=== PATIENT | female | born 1930 | race Caucasian/White ===

== ENCOUNTER 2019-11-18 21:55 | Inpatient (IN) | payer BC ==
[~2019-11-18] VITALS: Ht 149.9 cm; Wt 57.2 kg
[2019-11-18 22:02] VITALS: BP_SYST 84
[2019-11-18] MEDS ORDERED: NACL 0.9% 2,000 ML IV ONE (22:06)
[2019-11-18] MEDS ORDERED: cefTRIAXone 1 GM IVPB PREMIX 50 ML IV ONE (22:15)
[2019-11-18 22:32] LABS: HEMATOCRIT 30.7 % (36-48); MEAN CORPUSCULAR HEMOGLOBIN 29 pg (27-31); MEAN CORPUSCULAR HGB CONC 32 % (32-36); MEAN CORPUSCULAR VOLUME 89 fL (79.0-98.0); PLATELET COUNT (AUTO) 389 K/uL (130-430); RED BLOOD CELL COUNT(AUTO) 3.46 MIL/uL (4.2-6.2); RED CELL DISTRIBUTION WIDTH 19.7 % (9.0-15.0); WHITE BLOOD COUNT (AUTO) 10.2 K/uL (4.8-10.8)
[2019-11-18] MEDS ORDERED: NOREPINEPHRINE 4 MG/4 ML VIAL IV ONE (22:41)
[2019-11-18 22:52] LABS: ANION GAP 7 (5-15); CALCIUM 7.7 mg/dL (8.4-11.0); CHLORIDE 87 mmol/L (98-107); CREATININE 3.53 mg/dL (0.55-1.30); POTASSIUM 4.6 mmol/L (3.5-5.1); SODIUM SERUM 124 mmol/L (136-145); UREA NITROGEN, BLOOD 87 mg/dL (8-21)
[2019-11-18 22:55] LABS: ALANINE AMINOTRANSFERASE 16 U/L (12-78); ALBUMIN 1.7 g/dL (3.4-4.8); ASPARTATE AMINOTRANSFERASE 20 U/L (10-37); TOTAL BILIRUBIN 0.4 mg/dL (0.0-1.0)
[2019-11-18] MEDS ORDERED: DIVA250T PO (22:58)
[2019-11-18] MEDS ORDERED: PRO40 PO (22:58)
[2019-11-18] MEDS ORDERED: LIP20 PO (22:58)
[2019-11-18] MEDS ORDERED: MORP10SO PO ×2 (22:58)
[2019-11-18] MEDS ORDERED: CARV25TA55 PO (22:58)
[2019-11-18] MEDS ORDERED: IPRA4AER INH ×2 (22:58)
[2019-11-18] MEDS ORDERED: LORA-258 PO (22:58)
[2019-11-18] MEDS ORDERED: CLOP75TA32 PO (22:58)
[2019-11-18] MEDS ORDERED: DONE10TA44 PO (22:58)
[2019-11-18] MEDS ORDERED: CAND16TA25 PO (22:58)
[2019-11-18] MEDS ORDERED: FERROUS SULFATE PO (22:58)
[2019-11-18] MEDS ORDERED: CILO100T PO (22:58)
[2019-11-18] MEDS ORDERED: CAT.1 PO (22:58)
[2019-11-18] MEDS ORDERED: AMOX-423 PO (22:58)
[2019-11-18] MEDS ORDERED: INSU100V11 SQ (22:58)
[2019-11-18 23:00] LABS: GLUCOSE 606 mg/dL (70-99)
[2019-11-18 23:03] LABS: ATYPICAL LYMPHOCYTES % 0 % (0-0); BAND % (MANUAL) 5 % (0-6); BASOPHILS % (MANUAL) 0 % (0-2); EOSINOPHILS % (MANUAL) 0 % (0-7); LYMPHOCYTES % (MANUAL) 9 % (20-46); METAMYELOCYTES % 5 % (0-0); MONOCYTES % (MANUAL) 11 % (0-11); MYELOCYTES % 5 % (0-0)
[2019-11-18] MEDS ORDERED: INSULIN REGULAR, HUMAN 10 UNITS/0.1 ML INJ IVP ONE (23:15)
[2019-11-18] MEDS ORDERED: NOREPINEPHRINE BITARTRATE 4 MG in NS 246 ML IV ONE (23:30)
[2019-11-19] VITALS (50 sets, daily range): BP systolic 77–136
[2019-11-19 00:22] LABS: BILIRUBIN,URINE 1+ (NEGATIVE); BLOOD, URINE NEGATIVE (NEGATIVE); CLARITY/URINE CLEAR (CLEAR); COLOR,URINE YELLOW (YELLOW); GLUCOSE,URINE 3+ (NEGATIVE); KETONES,URINE TRACE (NEGATIVE); LEUKOCYTE ESTERASE ,URINE NEGATIVE (NEGATIVE); NITRITE, URINE NEGATIVE (NEGATIVE); PROTEIN URINE TRACE (NEGATIVE); UROBILINOGEN,URINE 0.2 (0.2-1.0)
[2019-11-19 00:29] LABS: BACTERIA,URINE FEW /HPF (None Seen); RBC,URINE 0-3 /HPF (0-3); WBC,URINE 0-3 /HPF (0-3)
[2019-11-19] MEDS ORDERED: INSULIN REGULAR, HUMAN 10 UNITS/0.1 ML INJ IVP ONE (02:30)
[2019-11-19] MEDS ORDERED: VANCOMYCIN HCL 1,000 MG in NS 250 ML IV ONE (03:30)
[2019-11-19] MEDS ORDERED: NOREPINEPHRINE BITARTRATE 4 MG in NS 246 ML IV ONE (03:45)
[2019-11-19] MEDS ORDERED: ACETAMINOPHEN 650 MG SUPP.RECT RC PRN (03:45)
[2019-11-19] MEDS ORDERED: VANCOMYCIN HCL 1000 MG/VIAL IV ONE (04:00)
[2019-11-19] MEDS ORDERED: NOREPINEPHRINE 4 MG/4 ML VIAL IV ONE (04:15)
[2019-11-19] MEDS: NACL 0.9% 1,000 ML IV SCH ×3 (06:49→21:29)
[2019-11-19 08:51] LABS: PROTHROMBIN TIME 10.3 SECS (9.5-12.5)
[2019-11-19] MEDS: NOREPINEPHRINE BITARTRATE 4 MG in NS 246 ML IV PRN ×2 (11:02→16:40)
[2019-11-19] MEDS: PIPERACILLIN/TAZO 2.25G/DEX-IS 50 ML IV SCH ×3 (12:29→23:42)
[2019-11-19] MEDS: AZITHROMYCIN 250 MG in NS 250 ML IV SCH (12:31)
[2019-11-19] MEDS: INSULIN REGULAR, HUMAN 100 UNITS/ML, 10 ML VIAL (humuLIN R) SUBCUT PRN ×2 (12:53→19:10)
[2019-11-19] MEDS ORDERED: PANTOPRAZOLE SODIUM 40 MG TAB PO ONE (13:30)
[2019-11-19] MEDS ORDERED: INSULIN GLARGINE 100 UNITS/ML 10 ML VIAL SUBCUT ONE (13:30)
[2019-11-19] MEDS ORDERED: CLOPIDOGREL BISULFATE 75 MG TABLET PO ONE (13:30)
[2019-11-19] MEDS ORDERED: ATORVASTATIN 20 MG TABLET PO ONE (13:30)
[2019-11-19 15:30] LABS: ALANINE AMINOTRANSFERASE 17 U/L (12-78); ALBUMIN 1.4 g/dL (3.4-4.8); ANION GAP 8 (5-15); ASPARTATE AMINOTRANSFERASE 21 U/L (10-37); CALCIUM 7.4 mg/dL (8.4-11.0); CHLORIDE 95 mmol/L (98-107); CREATININE 2.38 mg/dL (0.55-1.30); POTASSIUM 3.9 mmol/L (3.5-5.1); SODIUM SERUM 131 mmol/L (136-145); TOTAL BILIRUBIN 0.2 mg/dL (0.0-1.0); UREA NITROGEN, BLOOD 77 mg/dL (8-21)
[2019-11-19 15:34] LABS: GLUCOSE 443 mg/dL (70-99)
[2019-11-19] MEDS: CILOSTAZOL 50 MG TABLET (PLETAL) PO SCH (16:55)
[2019-11-19] MEDS: FERROUS SULFATE 325 MG TABLET.DR PO SCH (21:00)
[2019-11-19] MEDS: CARVEDILOL 25 MG TABLET (COREG) PO SCH (21:00)
[2019-11-19] MEDS: DONEPEZIL HCL 5 MG TABLET (ARICEPT) PO SCH (21:00)
[2019-11-20] VITALS (24 sets, daily range): BP systolic 90–145
[2019-11-20] MEDS: INSULIN REGULAR, HUMAN 100 UNITS/ML, 10 ML VIAL (humuLIN R) SUBCUT PRN ×3 (00:14→19:16)
[2019-11-20] MEDS ORDERED: NOREPINEPHRINE 4 MG/4 ML VIAL IV ONE (03:09)
[2019-11-20] MEDS: NOREPINEPHRINE BITARTRATE 4 MG in NS 246 ML IV PRN ×3 (03:09→23:46)
[2019-11-20] MEDS: NACL 0.9% 1,000 ML IV SCH ×3 (03:51→21:22)
[2019-11-20] MEDS: CILOSTAZOL 50 MG TABLET (PLETAL) PO SCH ×2 (05:22→17:00)
[2019-11-20] MEDS: PIPERACILLIN/TAZO 2.25G/DEX-IS 50 ML IV SCH ×4 (05:24→23:44)
[2019-11-20 05:48] LABS: HEMATOCRIT 31.5 % (36-48); HEMOGLOBIN 10.1 g/dL (12.0-16.0); MEAN CORPUSCULAR HEMOGLOBIN 29 pg (27-31); MEAN CORPUSCULAR HGB CONC 32 % (32-36); MEAN CORPUSCULAR VOLUME 89 fL (79.0-98.0); PLATELET COUNT (AUTO) 396 K/uL (130-430); RED BLOOD CELL COUNT(AUTO) 3.55 MIL/uL (4.2-6.2); RED CELL DISTRIBUTION WIDTH 19.6 % (9.0-15.0); WHITE BLOOD COUNT (AUTO) 13.1 K/uL (4.8-10.8)
[2019-11-20 06:18] LABS: ALANINE AMINOTRANSFERASE 17 U/L (12-78); ALBUMIN 1.4 g/dL (3.4-4.8); ANION GAP 5 (5-15); ASPARTATE AMINOTRANSFERASE 19 U/L (10-37); CHLORIDE 101 mmol/L (98-107); CREATININE 1.73 mg/dL (0.55-1.30); GLUCOSE 185 mg/dL (70-99); POTASSIUM 3.8 mmol/L (3.5-5.1); SODIUM SERUM 133 mmol/L (136-145); TOTAL BILIRUBIN 0.2 mg/dL (0.0-1.0); UREA NITROGEN, BLOOD 58 mg/dL (8-21); VANCOMYCIN,RANDOM 8.5 ug/mL
[2019-11-20] MEDS: AZITHROMYCIN 250 MG in NS 250 ML IV SCH (07:48)
[2019-11-20] MEDS: CARVEDILOL 25 MG TABLET (COREG) PO SCH ×2 (09:00→21:00)
[2019-11-20] MEDS: INSULIN GLARGINE 100 UNITS/ML 10 ML VIAL SUBCUT SCH (09:00)
[2019-11-20] MEDS: ATORVASTATIN 20 MG TABLET PO SCH (09:00)
[2019-11-20] MEDS: LOSARTAN POTASSIUM 50 MG TABLET (COZAAR) PO SCH (09:00)
[2019-11-20] MEDS ORDERED: CLOPIDOGREL BISULFATE 75 MG TABLET PO SCH (09:00)
[2019-11-20] MEDS ORDERED: NS 500 ML IV ONE (10:00)
[2019-11-20] MEDS ORDERED: VANCOMYCIN HCL 1 GM/NS PREMIX 250 ML IV ONE (10:00)
[2019-11-20 10:26] LABS: BAND % (MANUAL) 17 % (0-6); LYMPHOCYTES % (MANUAL) 10 % (20-46)
[2019-11-20 10:27] LABS: BASOPHILS % (MANUAL) 0 % (0-2); BLASTS, MANUAL % 0 % (0-0); EOSINOPHILS % (MANUAL) 1 % (0-7); METAMYELOCYTES % 9 % (0-0); MONOCYTES % (MANUAL) 4 % (0-11); MYELOCYTES % 5 % (0-0); PROMYELOCYTES % 2 % (0-0)
[2019-11-20] MEDS: ALBUMIN HUMAN 25% 50 ML IV SCH ×3 (12:22→17:56)
[2019-11-20] MEDS ORDERED: ALBUTEROL SULFATE 0.083% 2.5 MG/3 ML VIAL.NEB INH PRN (16:00)
[2019-11-20] MEDS ORDERED: IPRATROPIUM BROM 0.5 MG/2.5 ML VIAL.NEB (ATROVENT) INH PRN (16:00)
[2019-11-20] MEDS: ALBUTEROL SULFATE 0.083% 2.5 MG/3 ML VIAL.NEB INH SCH ×2 (16:00→19:51)
[2019-11-20] MEDS: PANTOPRAZOLE SODIUM 40 MG TAB PO SCH (16:37)
[2019-11-20] MEDS: IPRATROPIUM BROM 0.5 MG/2.5 ML VIAL.NEB (ATROVENT) INH SCH (19:51)
[2019-11-20] MEDS: MUPIROCIN 2% TOPICAL OINTMENT 22 GM NS SCH (21:20)
[2019-11-20] MEDS: FERROUS SULFATE 325 MG TABLET.DR PO SCH (21:20)
[2019-11-20] MEDS: DONEPEZIL HCL 5 MG TABLET (ARICEPT) PO SCH (21:20)
[2019-11-21] VITALS (21 sets, daily range): BP systolic 107–161
[2019-11-21] MEDS: IPRATROPIUM BROM 0.5 MG/2.5 ML VIAL.NEB (ATROVENT) INH SCH ×3 (01:26→19:48)
[2019-11-21] MEDS: ALBUTEROL SULFATE 0.083% 2.5 MG/3 ML VIAL.NEB INH SCH ×3 (01:26→19:48)
[2019-11-21] MEDS: PIPERACILLIN/TAZO 2.25G/DEX-IS 50 ML IV SCH ×4 (05:50→23:48)
[2019-11-21] MEDS: NACL 0.9% 1,000 ML IV SCH (05:50)
[2019-11-21 05:58] LABS: BASOPHILS % (AUTO) 0.2 % (0.0-2.0); EOSINOPHILS # (AUTO) 0.1 K/uL (0.0-0.4); EOSINOPHILS % (AUTO) 0.5 % (0.0-4.0); HEMATOCRIT 28.6 % (36-48); HEMOGLOBIN 9.1 g/dL (12.0-16.0); LYMPHOCYTES # (AUTO) 0.8 K/uL (1.0-5.5); LYMPHOCYTES % (AUTO) 6.3 % (20.5-51.5); MEAN CORPUSCULAR HEMOGLOBIN 28 pg (27-31); MEAN CORPUSCULAR HGB CONC 32 % (32-36); MEAN CORPUSCULAR VOLUME 89 fL (79.0-98.0); MONOCYTES # (AUTO) 0.9 K/uL (0.0-1.0); MONOCYTES % (AUTO) 6.4 % (1.7-9.3); NEUTROPHILS # (AUTO) 11.6 K/uL (1.8-7.7); NEUTROPHILS % (AUTO) 86.6 % (40.0-70.0); PLATELET COUNT (AUTO) 333 K/uL (130-430); RED CELL DISTRIBUTION WIDTH 19.9 % (9.0-15.0); WHITE BLOOD COUNT (AUTO) 13.4 K/uL (4.8-10.8)
[2019-11-21] MEDS: INSULIN REGULAR, HUMAN 100 UNITS/ML, 10 ML VIAL (humuLIN R) SUBCUT PRN ×2 (06:07→12:33)
[2019-11-21] MEDS: BALSAM PERU/CASTOR OIL 60 GM OINT...G. TP SCH (09:00)
[2019-11-21] MEDS: MUPIROCIN 2% TOPICAL OINTMENT 22 GM NS SCH ×2 (09:00→20:14)
[2019-11-21] MEDS: PANTOPRAZOLE SODIUM 40 MG TAB PO SCH (09:00)
[2019-11-21] MEDS: AZITHROMYCIN 250 MG in NS 250 ML IV SCH (09:00)
[2019-11-21] MEDS: CARVEDILOL 25 MG TABLET (COREG) PO SCH ×2 (09:00→20:15)
[2019-11-21] MEDS: ATORVASTATIN 20 MG TABLET PO SCH (09:00)
[2019-11-21] MEDS: LOSARTAN POTASSIUM 50 MG TABLET (COZAAR) PO SCH (09:00)
[2019-11-21] MEDS: INSULIN GLARGINE 100 UNITS/ML 10 ML VIAL SUBCUT SCH (09:00)
[2019-11-21 11:09] LABS: CHOLESTEROL 92 mg/dL (<200); HDL CHOLESTEROL 26 mg/dL (>55); LDL CHOLESTEROL 34 mg/dL (<100); TRIGLYCERIDES 77 mg/dL (30-150)
[2019-11-21 11:22] LABS: ANION GAP 9 (5-15); ASPARTATE AMINOTRANSFERASE 18 U/L (10-37); CALCIUM 7.9 mg/dL (8.4-11.0); CHLORIDE 106 mmol/L (98-107); CREATININE 1.29 mg/dL (0.55-1.30); GLUCOSE 211 mg/dL (70-99); POTASSIUM 4.1 mmol/L (3.5-5.1); SODIUM SERUM 141 mmol/L (136-145); TOTAL BILIRUBIN 0.4 mg/dL (0.0-1.0); UREA NITROGEN, BLOOD 52 mg/dL (8-21)
[2019-11-21 11:23] LABS: ALANINE AMINOTRANSFERASE 17 U/L (12-78); ALBUMIN 1.9 g/dL (3.4-4.8)
[2019-11-21 11:52] LABS: THYROID STIMULATING HORMONE 1.98 uIu/mL (0.34-4.82)
[2019-11-21] MEDS: 0.45% NACL 1,000 ML IV SCH ×2 (12:32→23:45)
[2019-11-21] MEDS ORDERED: *TPN PER PHARMACY XX PRN (15:00)
[2019-11-21] MEDS: DONEPEZIL HCL 5 MG TABLET (ARICEPT) PO SCH (20:15)
[2019-11-21] MEDS: FERROUS SULFATE 325 MG TABLET.DR PO SCH (20:15)
[2019-11-22] VITALS (24 sets, daily range): BP systolic 118–162
[2019-11-22] MEDS ORDERED: DEXTROSE 50% JECT 50 ML DISP.SYRIN IVP PRN
[2019-11-22] MEDS ORDERED: DEXTROSE 50% JECT 50 ML DISP.SYRIN ONE (00:19)
[2019-11-22] MEDS: ALBUTEROL SULFATE 0.083% 2.5 MG/3 ML VIAL.NEB INH SCH ×4 (00:36→19:34)
[2019-11-22] MEDS: IPRATROPIUM BROM 0.5 MG/2.5 ML VIAL.NEB (ATROVENT) INH SCH ×4 (00:36→19:34)
[2019-11-22] MEDS: 0.45% NACL 1,000 ML IV SCH ×2 (03:07→23:55)
[2019-11-22] MEDS: PIPERACILLIN/TAZO 2.25G/DEX-IS 50 ML IV SCH ×4 (05:46→23:50)
[2019-11-22 06:19] LABS: HEMATOCRIT 28.1 % (36-48); HEMOGLOBIN 8.9 g/dL (12.0-16.0); MEAN CORPUSCULAR HEMOGLOBIN 28 pg (27-31); MEAN CORPUSCULAR HGB CONC 32 % (32-36); MEAN CORPUSCULAR VOLUME 89 fL (79.0-98.0); PLATELET COUNT (AUTO) 325 K/uL (130-430); RED BLOOD CELL COUNT(AUTO) 3.15 MIL/uL (4.2-6.2); RED CELL DISTRIBUTION WIDTH 20.1 % (9.0-15.0); WHITE BLOOD COUNT (AUTO) 14.2 K/uL (4.8-10.8)
[2019-11-22 06:34] LABS: ALANINE AMINOTRANSFERASE 12 U/L (12-78); ALBUMIN 1.6 g/dL (3.4-4.8); ANION GAP 3 (5-15); ASPARTATE AMINOTRANSFERASE 15 U/L (10-37); CALCIUM 8.6 mg/dL (8.4-11.0); CHLORIDE 108 mmol/L (98-107); CREATININE 1.14 mg/dL (0.55-1.30); GLUCOSE 95 mg/dL (70-99); PHOSPHORUS 2.1 mg/dL (2.7-4.5); POTASSIUM 3.5 mmol/L (3.5-5.1); SODIUM SERUM 139 mmol/L (136-145); TOTAL BILIRUBIN 0.4 mg/dL (0.0-1.0); TRIGLYCERIDES 62 mg/dL (30-150); UREA NITROGEN, BLOOD 41 mg/dL (8-21)
[2019-11-22] MEDS: LOSARTAN POTASSIUM 50 MG TABLET (COZAAR) PO SCH (08:05)
[2019-11-22] MEDS: ATORVASTATIN 20 MG TABLET PO SCH (08:05)
[2019-11-22] MEDS: PANTOPRAZOLE SODIUM 40 MG TAB PO SCH (08:05)
[2019-11-22] MEDS: AZITHROMYCIN 250 MG in NS 250 ML IV SCH (08:06)
[2019-11-22] MEDS: MUPIROCIN 2% TOPICAL OINTMENT 22 GM NS SCH ×2 (08:06→21:00)
[2019-11-22] MEDS: CARVEDILOL 25 MG TABLET (COREG) PO SCH ×2 (08:06→21:50)
[2019-11-22] MEDS: INSULIN GLARGINE 100 UNITS/ML 10 ML VIAL SUBCUT SCH (08:07)
[2019-11-22] MEDS: BALSAM PERU/CASTOR OIL 60 GM OINT...G. TP SCH (08:07)
[2019-11-22 11:38] LABS: BAND % (MANUAL) 8 % (0-6); BASOPHILS % (MANUAL) 0 % (0-2); EOSINOPHILS % (MANUAL) 2 % (0-7); LYMPHOCYTES % (MANUAL) 7 % (20-46); METAMYELOCYTES % 16 % (0-0); MONOCYTES % (MANUAL) 2 % (0-11); MYELOCYTES % 3 % (0-0)
[2019-11-22] MEDS: FAT EMULSIONS 250 ML IV SCH (20:14)
[2019-11-22] MEDS ORDERED: SODIUM ACETATE IV SCH ×8 (21:00)
[2019-11-22] MEDS ORDERED: K PHOS IV SCH ×8 (21:00)
[2019-11-22] MEDS: DONEPEZIL HCL 5 MG TABLET (ARICEPT) PO SCH (21:00)
[2019-11-22] MEDS ORDERED: [UNRECOGNIZED DRUG - OTHER] IV SCH ×8 (21:00)
[2019-11-22] MEDS ORDERED: TPN CENTRAL IV SCH ×8 (21:00)
[2019-11-22] MEDS ORDERED: COLISTIMETHATE SODIUM 75 MG in NS 50 ML IV SCH (21:00)
[2019-11-22] MEDS ORDERED: MAGNESIUM SULFATE IV SCH ×8 (21:00)
[2019-11-22] MEDS ORDERED: COLISTIMETHATE SODIUM 150 MG VIAL ONE (21:19)
[2019-11-22] MEDS: FERROUS SULFATE 325 MG TABLET.DR PO SCH (23:48)
[2019-11-23] VITALS (21 sets, daily range): BP systolic 89–173
[2019-11-23] MEDS: INSULIN REGULAR, HUMAN 100 UNITS/ML, 10 ML VIAL (humuLIN R) SUBCUT PRN ×4 (00:08→18:30)
[2019-11-23] MEDS: ALBUTEROL SULFATE 0.083% 2.5 MG/3 ML VIAL.NEB INH SCH ×4 (01:53→19:40)
[2019-11-23] MEDS: IPRATROPIUM BROM 0.5 MG/2.5 ML VIAL.NEB (ATROVENT) INH SCH ×4 (01:53→19:40)
[2019-11-23 05:41] LABS: BASOPHILS % (AUTO) 0.1 % (0.0-2.0); EOSINOPHILS # (AUTO) 0.1 K/uL (0.0-0.4); EOSINOPHILS % (AUTO) 0.9 % (0.0-4.0); HEMATOCRIT 30.1 % (36-48); HEMOGLOBIN 9.5 g/dL (12.0-16.0); LYMPHOCYTES # (AUTO) 0.8 K/uL (1.0-5.5); LYMPHOCYTES % (AUTO) 5.7 % (20.5-51.5); MEAN CORPUSCULAR HEMOGLOBIN 28 pg (27-31); MEAN CORPUSCULAR HGB CONC 32 % (32-36); MEAN CORPUSCULAR VOLUME 90 fL (79.0-98.0); MONOCYTES # (AUTO) 0.7 K/uL (0.0-1.0); MONOCYTES % (AUTO) 5.1 % (1.7-9.3); NEUTROPHILS # (AUTO) 12.7 K/uL (1.8-7.7); NEUTROPHILS % (AUTO) 88.2 % (40.0-70.0); PLATELET COUNT (AUTO) 297 K/uL (130-430); RED BLOOD CELL COUNT(AUTO) 3.35 MIL/uL (4.2-6.2); RED CELL DISTRIBUTION WIDTH 20.1 % (9.0-15.0); WHITE BLOOD COUNT (AUTO) 14.4 K/uL (4.8-10.8)
[2019-11-23] MEDS: PIPERACILLIN/TAZO 2.25G/DEX-IS 50 ML IV SCH ×4 (05:41→23:53)
[2019-11-23 06:22] LABS: ALANINE AMINOTRANSFERASE 13 U/L (12-78); ALBUMIN 1.4 g/dL (3.4-4.8); ASPARTATE AMINOTRANSFERASE 15 U/L (10-37); CALCIUM 8.7 mg/dL (8.4-11.0); CHLORIDE 109 mmol/L (98-107); CREATININE 0.99 mg/dL (0.55-1.30); GLUCOSE 266 mg/dL (70-99); PHOSPHORUS 2.3 mg/dL (2.7-4.5); POTASSIUM 3.9 mmol/L (3.5-5.1); SODIUM SERUM 139 mmol/L (136-145); TOTAL BILIRUBIN 0.3 mg/dL (0.0-1.0); UREA NITROGEN, BLOOD 31 mg/dL (8-21)
[2019-11-23 06:54] LABS: ANION GAP < 3 (5-15)
[2019-11-23] MEDS: COLISTIMETHATE SODIUM 75 MG in NS 50 ML IV SCH ×2 (08:59→21:00)
[2019-11-23] MEDS: LOSARTAN POTASSIUM 50 MG TABLET (COZAAR) PO SCH (08:59)
[2019-11-23] MEDS: PANTOPRAZOLE SODIUM 40 MG TAB PO SCH (08:59)
[2019-11-23] MEDS: ATORVASTATIN 20 MG TABLET PO SCH (08:59)
[2019-11-23] MEDS ORDERED: VANCOMYCIN HCL 750 MG in NS 250 ML IV SCH (09:00)
[2019-11-23] MEDS: CARVEDILOL 25 MG TABLET (COREG) PO SCH ×2 (09:06→21:00)
[2019-11-23] MEDS: INSULIN GLARGINE 100 UNITS/ML 10 ML VIAL SUBCUT SCH (09:10)
[2019-11-23] MEDS: BALSAM PERU/CASTOR OIL 60 GM OINT...G. TP SCH (09:10)
[2019-11-23] MEDS: MUPIROCIN 2% TOPICAL OINTMENT 22 GM NS SCH ×2 (09:10→21:00)
[2019-11-23] MEDS ORDERED: TPN CENTRAL IV SCH ×9 (21:00)
[2019-11-23] MEDS ORDERED: K PHOS IV SCH ×9 (21:00)
[2019-11-23] MEDS ORDERED: SODIUM ACETATE IV SCH ×9 (21:00)
[2019-11-23] MEDS ORDERED: MAGNESIUM SULFATE IV SCH ×9 (21:00)
[2019-11-23] MEDS ORDERED: [UNRECOGNIZED DRUG - OTHER] IV SCH ×9 (21:00)
[2019-11-23] MEDS: FERROUS SULFATE 325 MG TABLET.DR PO SCH (22:00)
[2019-11-23] MEDS: DONEPEZIL HCL 5 MG TABLET (ARICEPT) PO SCH (22:00)
[2019-11-23] MEDS: FAT EMULSIONS 250 ML IV SCH (22:03)
[2019-11-24] VITALS (26 sets, daily range): BP systolic 83–133
[2019-11-24] MEDS: IPRATROPIUM BROM 0.5 MG/2.5 ML VIAL.NEB (ATROVENT) INH SCH ×4 (01:14→19:44)
[2019-11-24] MEDS: ALBUTEROL SULFATE 0.083% 2.5 MG/3 ML VIAL.NEB INH SCH ×4 (01:14→19:44)
[2019-11-24] MEDS: 0.45% NACL 1,000 ML IV SCH ×2 (04:15→09:45)
[2019-11-24 05:38] LABS: BASOPHILS % (AUTO) 0.2 % (0.0-2.0); EOSINOPHILS # (AUTO) 0.2 K/uL (0.0-0.4); EOSINOPHILS % (AUTO) 1.2 % (0.0-4.0); HEMATOCRIT 25.6 % (36-48); HEMOGLOBIN 8.2 g/dL (12.0-16.0); LYMPHOCYTES # (AUTO) 0.9 K/uL (1.0-5.5); LYMPHOCYTES % (AUTO) 5.3 % (20.5-51.5); MEAN CORPUSCULAR HEMOGLOBIN 28 pg (27-31); MEAN CORPUSCULAR HGB CONC 32 % (32-36); MEAN CORPUSCULAR VOLUME 89 fL (79.0-98.0); MONOCYTES # (AUTO) 0.9 K/uL (0.0-1.0); MONOCYTES % (AUTO) 5.6 % (1.7-9.3); NEUTROPHILS % (AUTO) 87.7 % (40.0-70.0); PLATELET COUNT (AUTO) 244 K/uL (130-430); RED BLOOD CELL COUNT(AUTO) 2.89 MIL/uL (4.2-6.2); RED CELL DISTRIBUTION WIDTH 20.3 % (9.0-15.0)
[2019-11-24] MEDS: PIPERACILLIN/TAZO 2.25G/DEX-IS 50 ML IV SCH (06:00)
[2019-11-24 06:03] LABS: ALANINE AMINOTRANSFERASE 10 U/L (12-78); ALBUMIN 1.4 g/dL (3.4-4.8); ANION GAP 7 (5-15); ASPARTATE AMINOTRANSFERASE 21 U/L (10-37); CALCIUM 8.1 mg/dL (8.4-11.0); CHLORIDE 105 mmol/L (98-107); CREATININE 0.77 mg/dL (0.55-1.30); GLUCOSE 242 mg/dL (70-99); PHOSPHORUS 2.5 mg/dL (2.7-4.5); POTASSIUM 3.3 mmol/L (3.5-5.1); SODIUM SERUM 139 mmol/L (136-145); TOTAL BILIRUBIN 0.2 mg/dL (0.0-1.0); UREA NITROGEN, BLOOD 26 mg/dL (8-21)
[2019-11-24] MEDS: INSULIN REGULAR, HUMAN 100 UNITS/ML, 10 ML VIAL (humuLIN R) SUBCUT PRN ×3 (07:59→17:22)
[2019-11-24] MEDS ORDERED: MAGNESIUM SULFATE 50 ML IV ONE ×2 (08:15→08:30)
[2019-11-24] MEDS ORDERED: KCL 20 mEq in 100 mL (PREMIX) 100 ML IV ONE (08:30)
[2019-11-24] MEDS: INSULIN GLARGINE 100 UNITS/ML 10 ML VIAL SUBCUT SCH (08:43)
[2019-11-24] MEDS: COLISTIMETHATE SODIUM 75 MG in NS 50 ML IV SCH ×2 (08:52→21:00)
[2019-11-24] MEDS: LOSARTAN POTASSIUM 50 MG TABLET (COZAAR) PO SCH (09:28)
[2019-11-24] MEDS: BALSAM PERU/CASTOR OIL 60 GM OINT...G. TP SCH (09:29)
[2019-11-24] MEDS: PANTOPRAZOLE SODIUM 40 MG TAB PO SCH (09:29)
[2019-11-24] MEDS: MUPIROCIN 2% TOPICAL OINTMENT 22 GM NS SCH ×2 (09:29→21:00)
[2019-11-24] MEDS: ATORVASTATIN 20 MG TABLET PO SCH (09:29)
[2019-11-24] MEDS: CARVEDILOL 25 MG TABLET (COREG) PO SCH ×2 (09:30→21:00)
[2019-11-24] MEDS ORDERED: TIGECYCLINE 100 MG in NS 100 ML IV ONE (09:45)
[2019-11-24] MEDS ORDERED: NOREPINEPHRINE BITARTRATE 4 MG in NS 246 ML IV PRN (12:30)
[2019-11-24] MEDS ORDERED: NS 500 ML IV ONE (12:30)
[2019-11-24] MEDS ORDERED: NOREPINEPHRINE 4 MG/4 ML VIAL IV ONE (12:32)
[2019-11-24] MEDS: NOREPINEPHRINE BITARTRATE 4 MG in NS 246 ML IV PRN (13:09)
[2019-11-24] MEDS ORDERED: K PHOS IV SCH ×11 (21:00)
[2019-11-24] MEDS ORDERED: [UNRECOGNIZED DRUG - OTHER] IV SCH ×11 (21:00)
[2019-11-24] MEDS ORDERED: MAGNESIUM SULFATE IV SCH ×11 (21:00)
[2019-11-24] MEDS ORDERED: SODIUM ACETATE IV SCH ×11 (21:00)
[2019-11-24] MEDS ORDERED: TPN CENTRAL IV SCH ×11 (21:00)
[2019-11-24] MEDS: FERROUS SULFATE 325 MG TABLET.DR PO SCH (22:59)
[2019-11-24] MEDS: DONEPEZIL HCL 5 MG TABLET (ARICEPT) PO SCH (23:00)
[2019-11-24] MEDS: TIGECYCLINE 50 MG in NS 100 ML IV SCH (23:02)
[2019-11-24] MEDS: FAT EMULSIONS 250 ML IV SCH (23:06)
[2019-11-25] VITALS (32 sets, daily range): BP systolic 80–146
[2019-11-25] MEDS: ALBUTEROL SULFATE 0.083% 2.5 MG/3 ML VIAL.NEB INH SCH ×2 (01:54→19:26)
[2019-11-25] MEDS: IPRATROPIUM BROM 0.5 MG/2.5 ML VIAL.NEB (ATROVENT) INH SCH ×2 (01:55→19:26)
[2019-11-25] MEDS: NOREPINEPHRINE BITARTRATE 4 MG in NS 246 ML IV PRN ×2 (06:41→16:00)
[2019-11-25 06:48] LABS: BASOPHILS % (AUTO) 0.2 % (0.0-2.0); EOSINOPHILS # (AUTO) 0.2 K/uL (0.0-0.4); EOSINOPHILS % (AUTO) 0.9 % (0.0-4.0); HEMATOCRIT 25.7 % (36-48); HEMOGLOBIN 8.2 g/dL (12.0-16.0); LYMPHOCYTES # (AUTO) 1.5 K/uL (1.0-5.5); MEAN CORPUSCULAR HEMOGLOBIN 29 pg (27-31); MEAN CORPUSCULAR HGB CONC 32 % (32-36); MEAN CORPUSCULAR VOLUME 90 fL (79.0-98.0); MONOCYTES # (AUTO) 1.2 K/uL (0.0-1.0); NEUTROPHILS # (AUTO) 16.2 K/uL (1.8-7.7); PLATELET COUNT (AUTO) 214 K/uL (130-430); RED BLOOD CELL COUNT(AUTO) 2.86 MIL/uL (4.2-6.2); RED CELL DISTRIBUTION WIDTH 20.7 % (9.0-15.0); WHITE BLOOD COUNT (AUTO) 19.2 K/uL (4.8-10.8)
[2019-11-25 07:27] LABS: ALANINE AMINOTRANSFERASE 10 U/L (12-78); ALBUMIN 1.3 g/dL (3.4-4.8); ANION GAP 6 (5-15); ASPARTATE AMINOTRANSFERASE 19 U/L (10-37); CALCIUM 8.2 mg/dL (8.4-11.0); CHLORIDE 106 mmol/L (98-107); CREATININE 1.09 mg/dL (0.55-1.30); GLUCOSE 159 mg/dL (70-99); PHOSPHORUS 3.3 mg/dL (2.7-4.5); POTASSIUM 3.6 mmol/L (3.5-5.1); SODIUM SERUM 138 mmol/L (136-145); TOTAL BILIRUBIN 0.2 mg/dL (0.0-1.0); UREA NITROGEN, BLOOD 39 mg/dL (8-21)
[2019-11-25 07:29] LABS: NEUTROPHILS % (AUTO) 84.9 % (40.0-70.0)
[2019-11-25] MEDS: TIGECYCLINE 50 MG in NS 100 ML IV SCH ×2 (08:30→22:02)
[2019-11-25] MEDS: INSULIN GLARGINE 100 UNITS/ML 10 ML VIAL SUBCUT SCH (08:31)
[2019-11-25] MEDS: PANTOPRAZOLE SODIUM 40 MG TAB PO SCH (08:32)
[2019-11-25] MEDS: ATORVASTATIN 20 MG TABLET PO SCH (08:32)
[2019-11-25] MEDS: BALSAM PERU/CASTOR OIL 60 GM OINT...G. TP SCH (08:33)
[2019-11-25] MEDS: MUPIROCIN 2% TOPICAL OINTMENT 22 GM NS SCH (08:34)
[2019-11-25] MEDS: CARVEDILOL 25 MG TABLET (COREG) PO SCH ×2 (08:34→21:00)
[2019-11-25] MEDS: 0.45% NACL 1,000 ML IV SCH (08:35)
[2019-11-25] MEDS: LOSARTAN POTASSIUM 50 MG TABLET (COZAAR) PO SCH (08:35)
[2019-11-25] MEDS: COLISTIMETHATE SODIUM 75 MG in NS 50 ML IV SCH ×2 (09:37→22:09)
[2019-11-25] MEDS: INSULIN REGULAR, HUMAN 100 UNITS/ML, 10 ML VIAL (humuLIN R) SUBCUT PRN ×2 (11:51→17:11)
[2019-11-25] MEDS ORDERED: ALBUMIN HUMAN 5% 250 ML IV ONE (12:30)
[2019-11-25] MEDS ORDERED: [UNRECOGNIZED DRUG - OTHER] IV SCH ×11 (21:00)
[2019-11-25] MEDS ORDERED: SODIUM ACETATE IV SCH ×11 (21:00)
[2019-11-25] MEDS ORDERED: TPN CENTRAL IV SCH ×11 (21:00)
[2019-11-25] MEDS ORDERED: K PHOS IV SCH ×11 (21:00)
[2019-11-25] MEDS ORDERED: MAGNESIUM SULFATE IV SCH ×11 (21:00)
[2019-11-25] MEDS: FAT EMULSIONS 250 ML IV SCH (22:05)
== END 2019-11-25 22:53 | disposition expired | DRG 871 ==
LOC: SED 21:55 → SIC 11-19 03:28
PROVIDERS: ADMIT Family Medicine; ATTEND Family Medicine
PROC: 02HV33Z Insertion of Infusion Device into Superior Vena Cava, Percutaneous Approach (ICD-10-PCS; principal; 2019-11-19)
PROC: B548ZZA Ultrasonography of Superior Vena Cava, Guidance (ICD-10-PCS; 2019-11-19)
PROC: 5A09357 Assistance with Respiratory Ventilation, Less than 24 Consecutive Hours, Continuous Positive Airway Pressure (ICD-10-PCS; 2019-11-19)
PROC: 5A09357 Assistance with Respiratory Ventilation, Less than 24 Consecutive Hours, Continuous Positive Airway Pressure (ICD-10-PCS; 2019-11-20)
PROC: 5A09457 Assistance with Respiratory Ventilation, 24-96 Consecutive Hours, Continuous Positive Airway Pressure (ICD-10-PCS; 2019-11-21)
PROC: 5A09357 Assistance with Respiratory Ventilation, Less than 24 Consecutive Hours, Continuous Positive Airway Pressure (ICD-10-PCS; 2019-11-23)
DX: A41.9 Sepsis, unspecified organism (principal); R65.21 Severe sepsis with septic shock; G93.41 Metabolic encephalopathy; J96.01 Acute respiratory failure with hypoxia; N17.0 Acute kidney failure with tubular necrosis; J69.0 Pneumonitis due to inhalation of food and vomit; E46 Unspecified protein-calorie malnutrition; J44.0 Chronic obstructive pulmonary disease with (acute) lower respiratory infection; L89.619 Pressure ulcer of right heel, unspecified stage; E11.65 Type 2 diabetes mellitus with hyperglycemia; E78.5 Hyperlipidemia, unspecified; E86.0 Dehydration; F02.80 Dementia in other diseases classified elsewhere, unspecified severity, without behavioral disturbance, psychotic disturbance, mood disturbance, and anxiety; G30.9 Alzheimer's disease, unspecified; I10 Essential (primary) hypertension; I25.10 Atherosclerotic heart disease of native coronary artery without angina pectoris; M81.0 Age-related osteoporosis without current pathological fracture; R13.10 Dysphagia, unspecified; K21.9 Gastro-esophageal reflux disease without esophagitis; E11.42 Type 2 diabetes mellitus with diabetic polyneuropathy; Z51.5 Encounter for palliative care; L89.159 Pressure ulcer of sacral region, unspecified stage; Z66 Do not resuscitate; Z79.4 Long term (current) use of insulin; Z87.891 Personal history of nicotine dependence; Z90.49 Acquired absence of other specified parts of digestive tract; Z87.81 Personal history of (healed) traumatic fracture; Z74.01 Bed confinement status; Z68.25 Body mass index [BMI] 25.0-25.9, adult; Z79.899 Other long term (current) drug therapy
CPT/HCPCS: 36415; 36600; 71045; 76770; 80053; 80061; 80202-TC; 81000-TC; 82803-TC; 82962; 83605; 83735-TC; 83880; 84100-TC; 84134; 84443-TC; 84478-TC; 84484; 85007; 85025; 85027; 85610-TC; 85730-TC; 86710; 87040-TC; 87070-TC; 87081; 87186-TC; 87205-TC; 92610-GN; 92950; 93005; 93306; 94640; 94660; 94760; 96365; 96366; 96367; 96375; 96376; 99291; C1751; J0456; J0696; J0770; J1815; J1956; J2543; J3243; J3370; J3475; J3480; J7030; J7040; J7050; J7131; J7613; P9041; P9046